=== PATIENT | male | born 1980 | race African-American/Black ===

== ENCOUNTER 2018-11-29 17:06 | Emergency (ER) | payer OTHER ==
[~2018-11-29] VITALS: Ht 180.3 cm; Wt 105.8 kg
[2018-11-29 17:07] VITALS: BP 171/93
[2018-11-29 18:40] LABS: INFLUENZA A AMPLIFICATION NEGATIVE (NEGATIVE); INFLUENZA B AMPLIFICATION NEGATIVE (NEGATIVE)
[2018-11-29] MEDS ORDERED: ALLE180T33 PO (20:37)
== END 2018-11-29 20:44 | disposition home or self-care (01) ==
LOC: M ED 17:06
DX: J30.9 Allergic rhinitis, unspecified (principal)